=== PATIENT | male | born 1945 | race Caucasian/White ===

== ENCOUNTER 2017-08-31 17:22 | Inpatient (IN) | payer MEDICARE ==
[~2017-08-31] VITALS: Ht 172.7 cm; Wt 86.2 kg
[2017-08-31] MEDS ORDERED: ASPIRIN 81 MG TAB.CHEW PO ONE (17:30)
[2017-08-31] MEDS ORDERED: ATOR20TA PO (17:35)
[2017-08-31] MEDS ORDERED: CLON0.5T PO (17:35)
[2017-08-31] MEDS ORDERED: APIX5TAB PO (17:35)
[2017-08-31] MEDS ORDERED: ATEN25TA PO (17:35)
[2017-08-31 17:37] LABS: BASOPHILS % (AUTO) 0.4 % (0.0-2.0); EOSINOPHILS # (AUTO) 0.1 K/uL (0.0-0.7); HEMOGLOBIN 16.1 g/dL (12.5-16.3); LYMPHOCYTES # (AUTO) 2.5 K/uL (20.0-40.0); LYMPHOCYTES % (AUTO) 25.1 % (20.5-51.5); MEAN CORPUSCULAR HEMOGLOBIN 31.3 uug (23.8-33.4); MEAN CORPUSCULAR HGB CONC 34 g/dL (32.5-36.3); MEAN CORPUSCULAR VOLUME 91.7 fL (73.0-96.2); MONOCYTES # (AUTO) 0.8 K/uL (2.0-10.0); NEUTROPHILS # (AUTO) 6.5 K/uL (1.8-8.9); NEUTROPHILS % (AUTO) 65.5 % (38.5-71.5); PLATELET COUNT (AUTO) 166 K/uL (152-348); RED BLOOD CELL COUNT(AUTO) 5.13 MIL/uL (4.06-5.63); WHITE BLOOD COUNT (AUTO) 9.9 K/uL (3.6-10.2)
--- NOTE | 2017-08-31 17:40 | NUR ---
PATIENT IS AWAKE AND ALERT. PLACED ON CONTINUOUS CARDIAC MONITORING. IV PLACED, LABS DRAWN, 12 LEAD EKG DONE.
[2017-08-31] MEDS ORDERED: ASPIRIN 81 MG TAB.CHEW ONE (17:49)
[2017-08-31 17:53] LABS: CREATININE 1.1 mg/dL (0.6-1.3); POTASSIUM 4.6 mmol/L (3.5-5.1)
[2017-08-31 18:11] LABS: BILIRUBIN,DIRECT 0.2 mg/dL (0.0-0.2); BILIRUBIN,TOTAL 1.5 mg/dL (0.2-1.0); TOTAL PROTEIN, SERUM 7.4 g/dL (6.4-8.2)
[2017-08-31] MEDS ORDERED: ACET-2154 PO (18:21)
--- NOTE | 2017-08-31 18:33 | NUR ---
PATIENT STATES CHEST PAIN IS MINIMAL AT THIS TIME. HE IS AWARE OF PENDING ADMISSION.
[2017-08-31] MEDS ORDERED: Z GUARD REMEDY PASTE 57 GM TUBE TOP PRN (18:45)
[2017-08-31] MEDS ORDERED: ACETAMINOPHEN 325 MG TABLET PO PRN (18:45)
[2017-08-31] MEDS ORDERED: CLONAZEPAM 0.5 MG TABLET PO PRN (18:45)
[2017-08-31] MEDS ORDERED: MAGNESIUM HYDROXIDE 30 ML LIQUID UDC PO PRN (18:45)
[2017-08-31] MEDS ORDERED: HYDROCODONE/APAP 5-325MG TABLET PO PRN (18:45)
[2017-08-31] MEDS ORDERED: LORAZEPAM 0.5 MG TABLET PO PRN (18:45)
[2017-08-31] MEDS ORDERED: ONDANSETRON 4 MG/2 ML VIAL IV PRN (18:45)
--- NOTE | 2017-08-31 18:47 | NUR ---
PATIENT IS VERY ANXIOUS ABOOUT HIS HEART RHTYHM... I TRIED TO REASSURE HIM THAT WE ARE WATCHING HIS HEART RHTYM ON THE MONITOR AT THE NURSES STATION. HE REQUESTED A PILL TO HELP CALM HIM. DR LEWIS NOTIFIED.
[2017-08-31] MEDS ORDERED: LORAZEPAM 0.5 MG TABLET ONE (18:58)
[2017-08-31 19:00] VITALS: BP 135/91
[2017-08-31] MEDS ORDERED: LORAZEPAM 0.5 MG TABLET PO ONE (19:00)
--- NOTE | 2017-08-31 19:01 | NUR ---
HANDOFF REPORT GIVEN TO JOSÉ MIGUEL YIN
--- NOTE | 2017-08-31 19:35 | NUR ---
Pt. admitted to [facility] , under care of Dr. NA CHATMAN. Diagosis: Chest pain Belongs List completed. Report given to Jay YIN.
--- NOTE | 2017-08-31 20:10 | NUR ---
RECEIVED REPORT FROM CORPORATE MANAGER. PT ARRIVED ON TELE FLOOR AT 0800 VIA GURNEY. STABLE AT THIS TIME, NO COMPLAINTS. PT HAS 20 G IV ACCESS ON L HAND. ON O2 @ 2 LPM. V/S 143/73, HR 90, RR 18, SPO2 98%.
--- NOTE | 2017-08-31 20:15 | NUR ---
PATIENT CALLED DR. OLEARY, AND REPLIED TO PATIENT PAGED, AND MD SPOKE TO PATIENT AND FURTHER EXPLAINED WHY HE SHOULD NOT BE DISCHARGE AT THIS TIME. TRIED TO ENCOURAGED PATIENT TO STAY AND WAIT IN THE MORNING FOR PROPER PLACEMENT OR DISCHARGE TO [facility] BUT REFUSED, WANTING TO BE TRANSFERRED.
--- NOTE | 2017-08-31 20:15 | NUR ---
NOTIFY DR. OLEARY THAT PATIENT WANTED TO BE TRANFER TO [facility], MD STATED THAT PATIENT IS NOT STABLE TO BE TRANFERED AT THIS TIME. NOTIFY THE PATIENT, REQUEST TO HAVE MD PHONE NO AND GIVEN TO PATIENT.
[2017-08-31] MEDS ORDERED: ATENOLOL 25 MG TABLET PO SCH (21:00)
[2017-08-31] MEDS ORDERED: ATORVASTATIN 20 MG TABLET PO SCH (21:00)
[2017-08-31 21:02] VITALS: BP 135/91
--- NOTE | 2017-08-31 21:34 | NUR ---
PATIENT WANTS GO AMA, STATED THAT HE COMMUNICATED WITH HIS POLICE DETECTIVE DR. GLADYS RODRIGUEZ THAT THERE IS NOTHING WRONG WITH HIM, AND HE CAN TAKE [facility]BER HOME. EXPLAINED THAT RISK AND BENEFIT OF DOING AMA BUT STATED THAT YOU GUYS MONITORING ONLY AND MY ROOMATE CAN MONITOR ME AND CALL 911. PATIENT SIGNED AMA, ALL BELONINGS TAKEN.
--- NOTE | 2017-08-31 22:00 | NUR ---
NOTIFIED DR. OLEARY OF PT'S LEAVING AMA. INCIDENT REPORT COMPLETED.
[2017-09-01] MEDS ORDERED: APIXABAN 5 MG TABLET PO SCH (09:00)
== END 2017-08-31 22:00 | disposition left against medical advice (07) | DRG 310 ==
LOC: ER 17:23 → TELE 19:37
PROVIDERS: ADMIT Internal Medicine; ATTEND Internal Medicine
DX: I48.92 Unspecified atrial flutter (principal); I48.91 Unspecified atrial fibrillation; E78.5 Hyperlipidemia, unspecified; Z79.899 Other long term (current) drug therapy; F32.9 Major depressive disorder, single episode, unspecified; F41.9 Anxiety disorder, unspecified; I25.10 Atherosclerotic heart disease of native coronary artery without angina pectoris; Z79.01 Long term (current) use of anticoagulants; R07.81 Pleurodynia; I10 Essential (primary) hypertension
CPT/HCPCS: 36415; 70030-TC; 71045; 85025; 85730; 93005; A4663